=== PATIENT | male | born 2000 | race Two or more races ===

== ENCOUNTER 2023-06-27 09:00 | Emergency (ER) | payer OTHER ==
[~2023-06-27] VITALS: Ht 175.3 cm; Wt 79.4 kg
[2023-06-27 09:00] VITALS: BP 131/87; TEMP 98.8
[2023-06-27] MEDS ORDERED: dexaMETHasone SOD PHOSPHATE 1 ML ONE (09:30)
[2023-06-27] MEDS: dexaMETHasone SOD PHOSPHATE 10 MG/ML VIAL MC ONE (09:36)
[2023-06-27 09:37] VITALS: O2SAT 100
== END 2023-06-27 09:39 | disposition home or self-care (01) ==
LOC: ER 09:00
DX: J02.9 Acute pharyngitis, unspecified (principal); F17.200 Nicotine dependence, unspecified, uncomplicated; Z60.2 Problems related to living alone
CPT/HCPCS: 99283; 87077; 87070; 87880; J1100; 86403-TC